=== PATIENT | male | born 1975 | race Caucasian/White ===

== ENCOUNTER 2020-08-15 12:40 | Emergency (ER) | payer OTHER ==
[~2020-08-15] VITALS: Ht 378.5 cm; Wt 100.0 kg
[2020-08-15] MEDS ORDERED: IBUPROFEN 800 MG TABLET. PO ONE (13:15)
[2020-08-15] MEDS ORDERED: BACITRACIN ZINC TOPICAL OINT PACKET. TP ONE ×2 (14:00→15:00)
[2020-08-15] MEDS ORDERED: LIDOCAINE 2%/EPI 1:100,000 20 ML VIAL. IJ ONE (14:00)
[2020-08-15] MEDS ORDERED: DIPH,PERTUSS(ACELL),TET VAC/PF 0.5 ML SYRINGE. VAX IM ONE ×2 (14:00→14:01)
[2020-08-15] MEDS ORDERED: ceFAZolin IM 1 GM VIAL IM ONE (14:00)
[2020-08-15] MEDS ORDERED: NEOMY/BACITR/POLYMYXIN OINT PACKET. TP ONE (14:02)
[2020-08-15] MEDS ORDERED: LIDOCAINE 1%/EPI 1:100,000 10 ML VIAL. ONE (14:08)
--- NOTE | 2020-08-15 14:22 | RAD ---
Site ID: [id number] EXAMINATION: XR EXAM OF ANKLE_LEFT 3V. HISTORY: 45 years Male Reason: FALL, LEFT ANKLE PAIN / COMPARISON: None. FINDINGS: No fracture, dislocation or radiopaque foreign body. The joint spaces and articular surfaces appea r unremarkable. Anterior soft tissue laceration and soft tissue air is suggested. IMPRESSION: Anterior soft tissue injury. Electronically signed by: Abelardo Lopez MD (08/15/2020 2:19 PM) [id number]
--- NOTE | 2020-08-15 14:24 | RAD ---
Site ID: [id number] EXAMINATION: XR KNEE _4 VIEWS WITH PATELLA_LT. HISTORY: 45 years Male Reason: fall, patella hematoma, pain COMPARISON: None. FINDINGS: No fracture, dislocation or radiopaque foreign body. Mild degenerative marginal osteophytes are se en in the 3 compartments. There is a soft tissue swelling along the medial aspect of the suprapatella r effusion. IMPRESSION: Degenerative changes. No fracture seen. Soft tissue swelling around the patella. Electronically signed by: Abelardo Lopez MD (08/15/2020 2:21 PM) [id number]
--- NOTE | 2020-08-15 14:28 | RAD ---
CT HEAD AND MAXILLOFACIAL WO Date: 08/15/2020 1:50 PM Clinical Indication: fall, facial trauma, pain Comparison: None. Technique: 5 mm axial tomographic images were obtained of the head without contrast. These were view ed on brain and bone windows. Axial helical images of the face were obtained without contrast. Axial and coronal reconstruction was performed. One or more of the following dose reduction techniques were utilized: Automated exposure control (AEC), Adjustment of mA and/or kV according to patient size, Us e of iterative reconstruction technique such as ASiR, CT scan done according to ALARA and image gentl y/image wisely CT HEAD FINDINGS: The brain parenchyma is normal in attenuation. No intra- or extra-axial mass or fluid collection. No acute hemorrhage. The ventricles are normal in size, shape, and morphology. The harp-white matter roge ction is normal. The basilar cisterns are patent. The mastoid air cells are clear. No aggressive osseous lesion or fracture. CT FACE FINDINGS: There is no acute facial bone fracture. Left frontal scalp swelling. The paranasal sinuses are clear. The orbits are normal. The globes are intact. The nasal septum is mo stly midline. Impression: 1. No acute intracranial process. Left frontal scalp swelling. 2. No acute facial bone fracture. Electronically signed by: Vernon Maxwell MD (08/15/2020 2:25 PM) [id number]
[2020-08-15] MEDS ORDERED: LIDOCAINE 1%/EPI 1:100,000 20 ML VIAL. IJ ONE (14:30)
[2020-08-15 16:11] VITALS: BP 144/99
[2020-08-15] MEDS ORDERED: CEPH500C PO (16:53)
[2020-08-15] MEDS ORDERED: CYCL-331 PO (16:53)
[2020-08-15] MEDS ORDERED: HYDR-2155 PO (16:53)
[2020-08-15] MEDS ORDERED: IBUP600T16 PO (16:53)
[2020-08-15] MEDS ORDERED: BACI28.34 TP (16:53)
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
== END 2020-08-15 17:00 | disposition home or self-care (01) ==
LOC: ER 12:40
DX: S01.81XA Laceration without foreign body of other part of head, initial encounter (principal); S91.012A Laceration without foreign body, left ankle, initial encounter; S80.02XA Contusion of left knee, initial encounter; S50.02XA Contusion of left elbow, initial encounter; S80.812A Abrasion, left lower leg, initial encounter; S60.417A Abrasion of left little finger, initial encounter; S60.415A Abrasion of left ring finger, initial encounter; E78.5 Hyperlipidemia, unspecified; Z23 Encounter for immunization; Z88.0 Allergy status to penicillin; W23.0XXA Caught, crushed, jammed, or pinched between moving objects, initial encounter; Y93.39 Activity, other involving climbing, rappelling and jumping off; Y92.89 Other specified places as the place of occurrence of the external cause; Y99.8 Other external cause status
CPT/HCPCS: 12002; 12011; 70450; 70486; 73564; 73610; 90471; 90715; 96372; 99285; J0690